=== PATIENT | male | born 1985 | race Caucasian/White ===

== ENCOUNTER 2023-04-25 12:03 | Emergency (ER) | payer OTHER ==
[~2023-04-25] VITALS: Ht 180.3 cm; Wt 72.6 kg
[2023-04-25 12:47] VITALS: BP 129/76; PULSE 74; RESP 18; TEMP 98; O2SAT 98
[2023-04-25] MEDS ORDERED: CYCL-711 PO (15:11)
[2023-04-25] MEDS ORDERED: NAPR-54 PO (15:11)
== END 2023-04-25 15:35 | disposition home or self-care (01) ==
LOC: MED 12:03
DX: S70.02XA Contusion of left hip, initial encounter (principal); S30.0XXA Contusion of lower back and pelvis, initial encounter; Z79.899 Other long term (current) drug therapy; Z79.1 Long term (current) use of non-steroidal anti-inflammatories (NSAID); W11.XXXA Fall on and from ladder, initial encounter; Y93.89 Activity, other specified; Y92.89 Other specified places as the place of occurrence of the external cause; Y99.8 Other external cause status
CPT/HCPCS: 72220; 73502; 99284